=== PATIENT | male | born 1995 | race Caucasian/White ===

== ENCOUNTER 2016-10-26 10:44 | Outpatient (CLI) | payer OTHER ==
[2016-10-26 11:49] LABS: eGFR (African) > 60; eGFR (Non-African) > 60
== END 2016-10-26 10:45 ==
LOC: LAB 10:44
PROVIDERS: ATTEND Family Medicine
DX: Z00.00 Encounter for general adult medical examination without abnormal findings (principal)
CPT/HCPCS: 36415; 80053; 80061